=== PATIENT | male | born 2000 | race Hispanic/Latino ===

== ENCOUNTER 2024-08-11 17:08 | Emergency (ER) | payer OTHER, SELFPAY ==
[2024-08-11 18:42] VITALS: BP 152/95; PULSE 66; RESP 16; TEMP 37.1; O2SAT 100
[2024-08-11] MEDS: TETANUS,DIPHTHERIA,AC PERTUSSIS ADULT (0.5 ML) BOOSTRIX IM (19:16)
--- NOTE | 2024-08-11 19:36 | ED_ITS ---
HPI - Animal Bite General Chief Complaint: Animal Bite Stated Complaint: dog bite Time Seen by Provider: 08/11/24 19:35 Source: patient, RN notes reviewed and old records reviewed Mode of arrival: ambulatory Limitations: no limitations History of Present Illness HPI narrative: 24-year-old male presents to the [facility] with complaints of a dog bite. Has 2 puncture wounds to the distal palmar aspect 4th finger left hand. Bleeding is controlled. Unknown last tetanus Related Data Patient tetanus UTD: No Allergies Allergy/AdvReac Type Severity Reaction Status Date / Time No Known Allergies Allergy Verified 08/11/24 18:41 Review of Systems Review of Systems: All systems reviewed & are unremarkable except as noted in HPI and below Constitutional: Constitutional: Reports no additional constitutional complaints ENT: Reports system reviewed and no additional complaints, except as documented Cardiovascular: Cardiovascular: Reports no additional cardiovascular complaints, Denies chest pain and Denies dyspnea Respiratory: Respiratory: Reports no additional respiratory complaints, Denies chest congestion, Denies cough and Denies dyspnea Musculoskeletal: Musculoskeletal: Reports no additional musculoskeletal complaints Integumentary/Breasts: Skin/Breast: Reports as per HPI PMFSH Comments At the time of my signature, I reviewed and agree with the nursing past medical, surgical, social, and family history. There is no relevant family history pertinent to the patient complaint. Exam Const: General: cooperative, healthy appearing, comfortable, no acute distress, well developed, alert and well nourished Nutritional Appearance: well nourished Orientation/consciousness: patient oriented x3 Limitations: no limitations HENMT: Head: normal to inspection Eyes: General: appearance normal, both eyes and all related structures Alignment and Position: alignment normal Neck: Neck: normal visual inspection, full ROM, no lymphadenopathy and no meningeal signs Chest: Chest palpation & inspection: normal inspection of the chest Resp: Effort & Inspection: normal respiratory effort and able to speak in complete sentences Auscultation: clear to auscultation bilaterally, no crackles, no rales, no rhonchi and no wheezes Cardio: Rate: regular rate Skin: General skin exam: normal color and no rashes or lesions noted Other: 2 puncture wounds left distal 4th finger . Bleeding is controlled. No signs of infection. Sensation intact, capillary refill under 2 seconds Neuro: General: patient oriented x3, gait normal, moves all extremities and no meningeal signs Cognition (Neuro): normal cognition Speech: normal speech Gait exam (Neuro): Normal gait present Extrem: General: normal to inspection, full ROM, capillary refill normal and normal gait Psych: Appearance: grossly normal and well kempt Mental Status: mental status grossly normal Speech and movement: Normal speech and movement present and Clear speech present Affect: normal affect Attitude: cooperative Course Course Level of Care: Express Care Visit Vital Signs Vital signs: Vital Signs Temperature 98.8 F 08/11/24 18:42 Pulse Rate 66 08/11/24 18:42 Respiratory Rate 16 08/11/24 18:42 Blood Pressure 152/95 H 08/11/24 18:42 Pulse Oximetry 100 08/11/24 18:42 Oxygen Delivery Room Air 08/11/24 18:42 Temperature 98.8 F 08/11/24 18:42 Pulse Rate 66 08/11/24 18:42 Respiratory Rate 16 08/11/24 18:42 Blood Pressure 152/95 H 08/11/24 18:42 Pulse Oximetry 100 08/11/24 18:42 Oxygen Delivery Room Air 08/11/24 18:42 Reviewed MDM - Animal Bite MDM Narrative Medical decision making narrative: Patient sitting exam room. Patient is nontoxic, vitals are stable. Patient presents post dog bite. Puncture wound to the pad of the distal ring finger. No bleeding noted. Area cleaned by RN, soaked with saline and wound cleanser. Patient's tetanus updated. Patient appropriate for outpatient treatment with close follow-up Discharge instructions reviewed with patient, as well as provided in writing per nursing staff. The instructions also include specific and strict return/GO TO THE ER as well as f/u information. All questions have been answered, and the patient deny any further questions with discharge and discharge plan. Some parts of this dictation were generated by voice recognition software and may contain typographical and/or grammatical inaccuracies. Differential Diagnosis Differential diagnosis: Likely bite by animal and dog bite Critical Care Time Critical Care Time Critical Care Time: No Discharge Plan Discharge Clinical Impression: Dog bite, Vaccine for [id number], combined Patient Disposition: Home Condition: Stable Instructions: Antibiotic Form, Animal Bite (ED) Additional Instructions: Rest, ice and elevate every 2-3 hours for 15-20 minutes while awake. Take antibiotic as prescribed to reduce her chances of infection Follow-up with primary care provider Wash wound 2 to 3 times a day with warm soapy water. Keep the bandage on the wound when not at home. When at home a try leaving open to air. For worsening symptoms please go to the emergency room Patient Language: Hungarian Prescriptions: New amoxicillin-pot clavulanate 875-125 mg tablet 1 tablet PO Q12H Qty: 20 0RF Follow-up/Referrals: PHYSICIAN,GRINDER SET UP OPERATOR [employer]READ [employer] [Primary Care Provider] - Time of Disposition: 19:40
== END 2024-08-11 19:48 | disposition home or self-care (01) ==
PROVIDERS: Emergency Provider Nurse Practitioner
DX: S61.235A Puncture wound without foreign body of left ring finger without damage to nail, initial encounter (principal); W54.0XXA Bitten by dog, initial encounter
CPT/HCPCS: 90471; 90715; 99213; G0463